=== PATIENT | male | born 1985 | race Caucasian/White ===

== ENCOUNTER → 2021-06-16 | Outpatient (CLI) | payer OTHER ==
[~2021-06-16] MED LIST: CASIRIVIMAB/IMDEVIMAB 600/600mg in IV NS TV=50 ML IV ONE; IV NORMAL SALINE 50 ML BAG ONE; [UNRECOGNIZED DRUG - OTHER] IV ONE
[2021-06-16 11:40] VITALS: BP 150/98
== END | disposition home or self-care (01) ==
LOC: OPINF 11:21
PROVIDERS: ATTEND Family Medicine
DX: U07.1 COVID-19 (principal)
CPT/HCPCS: M0243; Q0244; 36592; 96365; Q0243